=== PATIENT | female | born 1995 | race Caucasian/White ===

== ENCOUNTER 2019-04-21 10:39 | Emergency (ER) | payer OTHER ==
[2019-04-21 11:02] VITALS: BP 134/80
--- NOTE | 2019-04-21 11:12 | UC ---
Ear Complaint HPI - HPI Summary HPI Summary: 24-year-old female who has had right earache over the past 24 hours. The grandmother with her states she has had cold symptoms earlier in the week which resolved. - History of Current Complaint Chief Complaint: UCEar Stated Complaint: EAR PAIN Time Seen by Provider: 04/21/19 10:58 Hx Obtained From: Patient, Family/[employer] Hx Last Menstrual Period: 04/08/19 ?: No Onset/Duration: Gradual Onset Severity Initially: Mild Severity Currently: Mild - The patient states the ear pain is intermittent. Pain Intensity: 2 Aggravating Factors: Nothing Alleviating Factors: Nothing Associated Signs/Symptoms: Positive: URI Symptoms - Allergies/Home Medications Allergies/Adverse Reactions: Allergies Allergy/AdvReac Type Severity Reaction Status Date / Time No Known Allergies Allergy Unverified 04/11/14 13:58 Home Medications: Home Medications Albuterol HFA INHALER* [Ventolin HFA Inhaler*] 2 puff INH Q4H PRN 04/21/19 [ History Confirmed 04/21/19] Control 1 tab PO DAILY 04/21/19 [History Confirmed 04/21/19] Loratadine 10 mg PO DAILY 04/21/19 [History Confirmed 04/21/19] PMH/Surg Hx/FS Hx/Imm Hx Previously Healthy: Yes - Surgical History Surgical History: Yes Surgery Procedure, Year, and Place: tonsils - Family History Known Family History: Positive: Non-Contributory - Social History Lives: With Family Alcohol Use: None Substance Use Type: None Smoking Status (MU): Never Smoked Tobacco Review of Systems All Other Systems Reviewed And Are Negative: Yes ENT: Positive: Ear Ache - Right earache over the past 24 hours. She has had upper respiratory illness symptoms earlier in the week which have resolved. Is Patient Immunocompromised?: No Physical Exam Triage Information Reviewed: Yes Appearance: Well-Appearing, No Pain Distress, Well-Nourished Vital Signs: Initial Vital Signs Temp 98.9 F 04/21/19 10:53 Pulse 80 04/21/19 10:53 Resp 12 04/21/19 10:53 BP 134/80 04/21/19 10:53 Pulse Ox 97 04/21/19 10:53 Vital Signs Reviewed: Yes Eyes: Positive: Conjunctiva Clear ENT: Positive: Hearing grossly normal, Pharynx normal, Uvula midline, Other - Left tympanic membrane is pearly-lopez with good landmarks and light reflex. Unable to visualize right tympanic membranes because of cerumen in ear canal. Neck: Positive: Supple, Nontender, No Lymphadenopathy Respiratory: Positive: Lungs clear, Normal breath sounds, No respiratory distress, No accessory muscle use Cardiovascular: Positive: RRR, No Murmur, Pulses Normal, Brisk Capillary Refill Musculoskeletal Exam: Normal Neurological Exam: Normal Psychological Exam: Normal Skin Exam: Normal Ear Complaint Course/Dx - Course Course Of Treatment: Patient is comfortable here. Her right ear was lavaged successfully. Tympanic membrane is mildly red with moderate landmarks. I advised the grandmother she could wait 24 hours and start the antibiotic if the patient's continues to have ear pain. The redness may be caused by the ear lavage. The grandmother is agreeable to this plan of action. - Differential Dx/Diagnosis Provider Diagnosis: Right otitis media, Right ear impacted cerumen Discharge ED - Sign-Out/Discharge Documenting (check all that apply): Patient Departure All imaging exams completed and their final reports reviewed: No Studies - Discharge Plan Condition: Good Disposition: HOME Prescriptions: Amoxicillin PO (*) [Amoxicillin 875 MG (*)] 875 mg PO BID 10 Days #20 tab Patient Education Materials: Ear Infection (ED) Referrals: Svetlana Villalobos MD [Primary Care Provider] - Additional Instructions: May wait to start the antibiotic and if continued ear pain today or tomorrow than start it. If you start the antibiotic, you are to take one tablet twice a day for 10 days. - Billing Disposition and Condition Condition: GOOD Disposition: Home
== END 2019-04-21 11:35 | disposition home or self-care (01) ==
LOC: UCEAST 10:39
DX: H66.91 Otitis media, unspecified, right ear (principal); H61.21 Impacted cerumen, right ear
CPT/HCPCS: 99213; G0463

== ENCOUNTER 2019-04-28 09:50 | Emergency (ER) | payer OTHER ==
--- NOTE | 2019-04-28 10:28 | UC ---
Ear Complaint HPI - HPI Summary HPI Summary: 24-year-old female who was seen here one week ago for a right otitis media. At that time the grandmother had decided to wait and see if the patient had worsening symptoms before she started the antibiotic. Patient has had no complaints throughout the week so the grandmother did not start the antibiotic. Today the patient has some white drainage from the right ear and complaints of ear pain occasionally more when she yawns and no other time. She has had no fever or chills or other symptoms of illness. - History of Current Complaint Stated Complaint: EAR COMPLAINT Time Seen by Provider: 04/28/19 10:21 Hx Obtained From: Family/Crown [employer] Operator - The patient is in the grandmother's care and is mildly developmentally slower. Hx Last Menstrual Period: 04/08/19 ?: No Onset/Duration: Gradual Onset Severity Initially: Mild Severity Currently: Mild Aggravating Factors: Nothing Alleviating Factors: Nothing - Allergies/Home Medications Allergies/Adverse Reactions: Allergies Allergy/AdvReac Type Severity Reaction Status Date / Time No Known Allergies Allergy Unverified 04/11/14 13:58 PMH/Surg Hx/FS Hx/Imm Hx Previously Healthy: Yes - Surgical History Surgical History: Yes Surgery Procedure, Year, and Place: tonsils - Family History Known Family History: Positive: Non-Contributory - Social History Occupation: Student Lives: With Family Alcohol Use: None Substance Use Type: None Smoking Status (MU): Never Smoked Tobacco Review of Systems All Other Systems Reviewed And Are Negative: Yes ENT: Positive: Ear Ache, Other - She had some drainage from right ear. She complains of her ear hurting only when she yawns. Is Patient Immunocompromised?: No Physical Exam Triage Information Reviewed: Yes Appearance: Well-Appearing, No Pain Distress, Well-Nourished Vital Signs Reviewed: Yes Eyes: Positive: Conjunctiva Clear ENT: Positive: Pharynx normal, Uvula midline - Left tympanic membrane is pearly- lopez with good land tay and light reflex. I'm unable to visualize right tympanic membrane because of white drainage in the ear canal. This is nontender , no pain with movement of her right ear. Neck: Positive: Supple, Nontender, No Lymphadenopathy Respiratory: Positive: Lungs clear, Normal breath sounds, No respiratory distress, No accessory muscle use Cardiovascular: Positive: RRR, No Murmur, Pulses Normal, Brisk Capillary Refill Musculoskeletal Exam: Normal Neurological Exam: Normal Psychological Exam: Normal Psychological: Positive: Other: - Patient is developmentally slower ainanswering questions. She lives with her grandmother. Skin Exam: Normal Ear Complaint Course/Dx - Course Course Of Treatment: I did advise the grandmother they could start the amoxicillin which was given 1 week ago or she could wait and see if she can get in with an ear nose and throat physician on Tuesday since the child is not running a fever, nor is she having excessive ear pain. The grandmother is agreeable to this plan of action. - Differential Dx/Diagnosis Provider Diagnosis: Right otitis media Discharge ED - Sign-Out/Discharge Documenting (check all that apply): Patient Departure All imaging exams completed and their final reports reviewed: No Studies - Discharge Plan Condition: Fair Disposition: HOME Patient Education Materials: Ear Infection (ED) Referrals: Svetlana Villalobos MD [Primary Care Provider] - Additional Instructions: Keep your ear dry. May take Tylenol every 4 hours for pain. Call your primary care provider on Tuesday and see if you can get a referral to an ear nose and throat physician for recheck. If the ear pain becomes worse you may start the antibiotic which was given to you earlier this week. - Billing Disposition and Condition Condition: FAIR Disposition: Home
[2019-04-28 10:33] VITALS: BP 127/80
== END 2019-04-28 10:44 | disposition home or self-care (01) ==
LOC: UCEAST 09:50
DX: H66.91 Otitis media, unspecified, right ear (principal)
CPT/HCPCS: 99211; G0463